=== PATIENT | male | born 1975 | race Caucasian/White ===

== ENCOUNTER 2023-11-17 06:51 | Day surgery (SDC) | payer BC, OTHER ==
[2023-11-17] MEDS ORDERED: Lidocaine 2% 100 MG/5 ML Syringe IVPUSH ONE (06:52)
[2023-11-17] MEDS ORDERED: Propofol 200 MG/20 ML SDV IV ONE (06:52)
[2023-11-17] MEDS ORDERED: Midazolam 1 MG/ML 2 ML SDV IV ONE (06:52)
[2023-11-17] MEDS ORDERED: Sodium Chloride 0.9% 10 ML Syringe FLUSH PRN (07:00)
[2023-11-17] MEDS: Lactated Ringers 1,000 ML IV SCH (07:51)
[2023-11-17] MEDS: Simethicone Drops 40 MG/0.6 ML 30 ML Bottle ONE (08:08)
[2023-11-17 10:58] VITALS: BP 132/82; PULSE 66
== END 2023-11-17 09:50 | disposition home or self-care (01) ==
LOC: FB.SDS 06:51
PROVIDERS: ATTEND Surgery
DX: Z12.11 Encounter for screening for malignant neoplasm of colon (principal); D12.6 Benign neoplasm of colon, unspecified; K57.30 Diverticulosis of large intestine without perforation or abscess without bleeding; K40.90 Unilateral inguinal hernia, without obstruction or gangrene, not specified as recurrent; Z80.0 Family history of malignant neoplasm of digestive organs; Z87.891 Personal history of nicotine dependence
CPT/HCPCS: 00811; 88305; A9270-GY; J2250; J2704; J7120

== ENCOUNTER 2024-10-08 18:30 | Emergency (ER) | payer OTHER ==
[2024-10-08 19:24] VITALS: BP 136/82; PULSE 88
== END 2024-10-08 19:22 | disposition home or self-care (01) ==
LOC: FB.ED 18:30
DX: S61.211A Laceration without foreign body of left index finger without damage to nail, initial encounter (principal); Z88.0 Allergy status to penicillin; Z88.5 Allergy status to narcotic agent; Z88.8 Allergy status to other drugs, medicaments and biological substances; Z79.899 Other long term (current) drug therapy; W22.8XXA Striking against or struck by other objects, initial encounter
CPT/HCPCS: 12001; 99282; A9270; J2003; 99283